=== PATIENT | male | born 1960 | race Caucasian/White ===

== ENCOUNTER 2019-09-16 16:16 | Inpatient (IN) | payer MEDICARE ==
[~2019-09-16] VITALS: Ht 170.2 cm; Wt 75.3 kg
[2019-09-16 17:15] LABS: ALBUMIN 2.8 g/dL (3.4-5.0); ANION GAP 4 mmol/L (5-15); CALCIUM 8.1 mg/dL (8.5-10.1); CHLORIDE 99 mmol/L (98-107)
[2019-09-16 17:17] LABS: BASOPHILS # (AUTO) 0.02 x10^3/uL (0-0.1); BASOPHILS % (AUTO) 0 % (0-1); EOSINOPHILS # (AUTO) 0.06 x10^3/uL (0-0.4); EOSINOPHILS % (AUTO) 1 % (1-7); LYMPHOCYTES % (AUTO) 8 % (22-44); MD NO; MEAN CORPUSCULAR HGB CONC 33.1 g/dL (33.2-36.2); MEAN CORPUSCULAR VOLUME 99.7 fL (81-97); MEAN PLATELET VOLUME 8.3 fL (7.4-10.4); MONOCYTES # (AUTO) 0.26 x10^3/uL (0.2-0.8); MONOCYTES % (AUTO) 6 % (2-9); NEUTROPHILS # (AUTO) 4.07 x10^3/uL (1.8-6.8); NEUTROPHILS % (AUTO) 85 % (42-75); PLATELET COUNT 105 x10^3/uL (130-400); RED BLOOD COUNT 2.52 x10^6/uL (4.38-5.82); RED CELL DISTRIBUTION WIDTH 13.8 % (9.4-14.8)
[2019-09-16 17:20] LABS: ALANINE AMINOTRANSFERASE 21 U/L (12-78); ALKALINE PHOSPHATASE 55 U/L (45-117); BILIRUBIN,TOTAL 0.6 mg/dL (0.2-1.0); CREATININE 6.25 mg/dL (0.7-1.3); TOTAL PROTEIN 5.7 g/dL (6.4-8.2)
--- NOTE | 2019-09-16 18:30 | NUR ---
PT RESTING IN BED, CALL LIGHT IN REACH
--- NOTE | 2019-09-16 18:53 | NUR ---
REPORT TO GARRETT WYATT
--- NOTE | 2019-09-16 18:55 | NUR ---
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
[2019-09-16] MEDS ORDERED: INSULIN REGULAR 100 UNITS/ML, 3ML VIAL IVPush ONE (19:00)
[2019-09-16 19:20] LABS: MICROSCOPIC AUTO
[2019-09-16 19:22] LABS: CULTURE INDICATED? NO
[2019-09-16] MEDS ORDERED: INSU100C5 SQ-INSULIN (19:46)
[2019-09-16] MEDS ORDERED: INSU100V8 SQ (19:46)
--- NOTE | 2019-09-16 19:53 | NUR ---
REPORT CALLED TO JOÃO WYATT AWAITING IR TO COME PLACE HD CATH THEN PATIENT RTG TO [facility]
--- NOTE | 2019-09-16 20:08 | NUR ---
IR AT BEDSIDE TO PLACE CATH VIA ULTRASOUND
--- NOTE | 2019-09-16 20:40 | NUR ---
RIGHT IJ TRIALYSIS CATHETER PLACED BY IR PLACEMENT CONFIRMED BY CXR PERFORMED DIRECTLY AFTER
--- NOTE | 2019-09-16 20:40 | NUR ---
REPEAT FSBS [id number]
--- NOTE | 2019-09-16 20:50 | NUR ---
RIGHT NECK TRIALYSIS REDRESSED (ORIGIANL DRESSING HALF IN HAIR/BLOODY)
--- NOTE | 2019-09-16 21:05 | NUR ---
DR RIVERA (HAND RIGGER) AT BEDSIDE FOR ASSESSMENT))-PLAN TO DIALYZE TONIGHT
[2019-09-16] MEDS ORDERED: DARBEPOETIN 100 MCG/ML SQ SCH (21:30)
[2019-09-16] MEDS: TACROLIMUS 1 MG CAPSULE PO SCH (21:30)
[2019-09-16] MEDS: PRAVASTATIN 20 MG TABLET PO SCH (21:30)
--- NOTE | 2019-09-16 21:31 | NUR ---
JOÃO WYATT MADE AWARE OF NEED TO COMPLETE MED RECC/ POC FOR THE EVENING (EMERGENT HD)
[2019-09-16 21:38] VITALS: BP 174/78
[2019-09-16] MEDS: INSULIN GLARGINE 100 UNITS/ML, PEN SQ-INSULIN SCH (22:00)
[2019-09-16] MEDS ORDERED: ONDANSETRON ODT 4 MG PO PRN (23:00)
[2019-09-16] MEDS ORDERED: DOCUSATE 100 MG CAPSULE PO PRN (23:00)
[2019-09-16] MEDS ORDERED: NICOTINE 21 MG/24 HR PATCH.TD24 TD PRN (23:00)
[2019-09-16] MEDS ORDERED: TEMAZEPAM 15 MG CAPSULE PO PRN (23:00)
[2019-09-16] MEDS ORDERED: ACETAMINOPHEN 325 MG TABLET PO PRN (23:00)
[2019-09-17] VITALS (8 sets, daily range): BP systolic 159–179; BP diastolic 67–85
[2019-09-17] MEDS: HEPARIN 5,000 UNITS/ML, 1ML SQ SCH ×3 (01:38→20:05)
[2019-09-17] MEDS: hydrALAzine 20 MG/ML, 1ML IVPush PRN (01:38)
[2019-09-17 05:29] LABS: BASOPHILS # (AUTO) 0.01 x10^3/uL (0-0.1); BASOPHILS % (AUTO) 0 % (0-1); EOSINOPHILS # (AUTO) 0.09 x10^3/uL (0-0.4); EOSINOPHILS % (AUTO) 2 % (1-7); LYMPHOCYTES # (AUTO) 0.56 x10^3/uL (1-3.4); LYMPHOCYTES % (AUTO) 11 % (22-44); MD NO; MEAN CORPUSCULAR HEMOGLOBIN 32.5 pg (27.5-34.5); MEAN CORPUSCULAR HGB CONC 32.5 g/dL (33.2-36.2); MEAN CORPUSCULAR VOLUME 99.8 fL (81-97); MEAN PLATELET VOLUME 7.8 fL (7.4-10.4); MONOCYTES # (AUTO) 0.25 x10^3/uL (0.2-0.8); MONOCYTES % (AUTO) 5 % (2-9); NEUTROPHILS % (AUTO) 82 % (42-75); PLATELET COUNT 106 x10^3/uL (130-400); RED BLOOD COUNT 2.72 x10^6/uL (4.38-5.82); RED CELL DISTRIBUTION WIDTH 13.8 % (9.4-14.8)
[2019-09-17 05:40] LABS: % IRON SATURATION 18 % (20-55); ALBUMIN 2.7 g/dL (3.4-5.0); ANION GAP 5 mmol/L (5-15); CALCIUM 8.1 mg/dL (8.5-10.1); CHLORIDE 102 mmol/L (98-107); CREATININE 4.06 mg/dL (0.7-1.3); IRON LEVEL 39 mcg/dL (65-175); TOTAL IRON BINDING CAPACITY 215 mcg/dL (250-450)
[2019-09-17] MEDS: CARVEDILOL 25 MG TABLET PO SCH ×2 (05:42→17:55)
[2019-09-17] MEDS ORDERED: MYCO250C PO (05:54)
[2019-09-17] MEDS ORDERED: PRAV20TA PO (05:55)
[2019-09-17] MEDS ORDERED: TACR1GRA PO (05:56)
[2019-09-17] MEDS ORDERED: ASPI-496 PO (05:57)
[2019-09-17] MEDS ORDERED: DILT180C9 PO (06:00)
[2019-09-17] MEDS ORDERED: OMEP20CA14 PO (06:00)
[2019-09-17] MEDS ORDERED: FURO20TA3 PO (06:00)
[2019-09-17] MEDS ORDERED: MAGN400T36 PO ×2 (06:03)
[2019-09-17] MEDS ORDERED: CARV25TA PO (06:04)
[2019-09-17] MEDS: CHOLECALCIFEROL 1,000 UNIT TABLET PO SCH (10:52)
[2019-09-17] MEDS: IRON SUCROSE COMPLEX 100MG/5ML IV SCH (10:52)
[2019-09-17] MEDS: TACROLIMUS 1 MG CAPSULE PO SCH ×2 (10:52→20:04)
[2019-09-17] MEDS ORDERED: ACETAMINOPHEN 325 MG TABLET PO PRN (11:00)
[2019-09-17] MEDS: INSULIN LISPRO 100 UNITS/ML, PEN SQ-INSULIN SCH ×3 (14:17→20:06)
[2019-09-17] MEDS: PRAVASTATIN 20 MG TABLET PO SCH (20:05)
[2019-09-17] MEDS: INSULIN GLARGINE 100 UNITS/ML, PEN SQ-INSULIN SCH (20:07)
[2019-09-18 01:59] VITALS: BP 158/68
[2019-09-18] MEDS: HEPARIN 5,000 UNITS/ML, 1ML SQ SCH ×3 (03:24→22:44)
[2019-09-18] MEDS: CARVEDILOL 25 MG TABLET PO SCH ×2 (06:07→17:39)
[2019-09-18 06:51] VITALS: BP 155/76
[2019-09-18 07:38] LABS: BASOPHILS # (AUTO) 0.01 x10^3/uL (0-0.1); BASOPHILS % (AUTO) 0 % (0-1); EOSINOPHILS % (AUTO) 0 % (1-7); LYMPHOCYTES # (AUTO) 0.48 x10^3/uL (1-3.4); LYMPHOCYTES % (AUTO) 9 % (22-44); MD NO; MEAN CORPUSCULAR HEMOGLOBIN 32.6 pg (27.5-34.5); MEAN CORPUSCULAR HGB CONC 33.3 g/dL (33.2-36.2); MEAN CORPUSCULAR VOLUME 97.9 fL (81-97); MEAN PLATELET VOLUME 7.1 fL (7.4-10.4); MONOCYTES # (AUTO) 0.32 x10^3/uL (0.2-0.8); MONOCYTES % (AUTO) 6 % (2-9); NEUTROPHILS # (AUTO) 4.38 x10^3/uL (1.8-6.8); NEUTROPHILS % (AUTO) 85 % (42-75); PLATELET COUNT 108 x10^3/uL (130-400); RED BLOOD COUNT 2.67 x10^6/uL (4.38-5.82); RED CELL DISTRIBUTION WIDTH 13.8 % (9.4-14.8)
[2019-09-18 07:48] LABS: ALBUMIN 2.5 g/dL (3.4-5.0); ANION GAP 3 mmol/L (5-15); CHLORIDE 104 mmol/L (98-107)
[2019-09-18 07:52] LABS: ALANINE AMINOTRANSFERASE 22 U/L (12-78); ALKALINE PHOSPHATASE 46 U/L (45-117); BILIRUBIN,TOTAL 0.4 mg/dL (0.2-1.0); CALCIUM 8.3 mg/dL (8.5-10.1); CREATININE 3.49 mg/dL (0.7-1.3); TOTAL PROTEIN 5.3 g/dL (6.4-8.2)
[2019-09-18] MEDS: IRON SUCROSE COMPLEX 100MG/5ML IV SCH (09:07)
[2019-09-18] MEDS: INSULIN LISPRO 100 UNITS/ML, PEN SQ-INSULIN SCH ×4 (09:26→21:15)
[2019-09-18 12:45] VITALS: BP 151/87
[2019-09-18] MEDS: CHOLECALCIFEROL 1,000 UNIT TABLET PO SCH (14:31)
[2019-09-18] MEDS: TACROLIMUS 1 MG CAPSULE PO SCH ×2 (14:32→21:15)
[2019-09-18] MEDS ORDERED: LIDOCAINE 1%, 10ML ONE (15:37)
[2019-09-18] MEDS ORDERED: LIDOCAINE 1%, 20ML ONE (15:37)
[2019-09-18 15:40] VITALS: BP 160/70
[2019-09-18] MEDS ORDERED: NALOXONE 1 MG/ML, 2ML ONE (15:44)
[2019-09-18] MEDS ORDERED: FENTANYL PF 100 MCG/2ML ONE ×2 (15:44)
[2019-09-18 17:39] VITALS: BP 172/78
[2019-09-18 18:40] VITALS: BP 156/75
[2019-09-18] MEDS: INSULIN GLARGINE 100 UNITS/ML, PEN SQ-INSULIN SCH (21:15)
[2019-09-18] MEDS: PRAVASTATIN 20 MG TABLET PO SCH (21:15)
[2019-09-19 00:23] VITALS: BP 168/88
[2019-09-19] MEDS: HEPARIN 5,000 UNITS/ML, 1ML SQ SCH ×3 (06:05→23:04)
[2019-09-19] MEDS: CARVEDILOL 25 MG TABLET PO SCH ×2 (06:05→17:54)
[2019-09-19] MEDS: INSULIN LISPRO 100 UNITS/ML, PEN SQ-INSULIN SCH ×4 (07:00→20:17)
[2019-09-19 07:56] VITALS: BP 127/63
[2019-09-19] MEDS: TACROLIMUS 1 MG CAPSULE PO SCH ×2 (08:22→20:16)
[2019-09-19] MEDS: IRON SUCROSE COMPLEX 100MG/5ML IV SCH (08:22)
[2019-09-19] MEDS: CHOLECALCIFEROL 1,000 UNIT TABLET PO SCH (08:22)
[2019-09-19 14:19] VITALS: BP 151/71
[2019-09-19 19:54] VITALS: BP 158/69
[2019-09-19] MEDS: PRAVASTATIN 20 MG TABLET PO SCH (20:16)
[2019-09-19] MEDS: INSULIN GLARGINE 100 UNITS/ML, PEN SQ-INSULIN SCH (20:17)
[2019-09-20] VITALS (8 sets, daily range): BP systolic 160–178; BP diastolic 71–87
[2019-09-20] MEDS: hydrALAzine 20 MG/ML, 1ML IVPush PRN (01:14)
[2019-09-20] MEDS ORDERED: LABETALOL 5MG/ML, 20ML IVPush ONE (03:30)
[2019-09-20 06:03] LABS: BASOPHILS # (AUTO) 0.02 x10^3/uL (0-0.1); BASOPHILS % (AUTO) 0 % (0-1); EOSINOPHILS # (AUTO) 0.13 x10^3/uL (0-0.4); EOSINOPHILS % (AUTO) 2 % (1-7); LYMPHOCYTES # (AUTO) 0.58 x10^3/uL (1-3.4); LYMPHOCYTES % (AUTO) 10 % (22-44); MD NO; MEAN CORPUSCULAR HEMOGLOBIN 32.1 pg (27.5-34.5); MEAN CORPUSCULAR HGB CONC 32.3 g/dL (33.2-36.2); MEAN CORPUSCULAR VOLUME 99.4 fL (81-97); MEAN PLATELET VOLUME 7.4 fL (7.4-10.4); MONOCYTES # (AUTO) 0.42 x10^3/uL (0.2-0.8); MONOCYTES % (AUTO) 7 % (2-9); NEUTROPHILS # (AUTO) 4.76 x10^3/uL (1.8-6.8); NEUTROPHILS % (AUTO) 81 % (42-75); PLATELET COUNT 118 x10^3/uL (130-400); RED CELL DISTRIBUTION WIDTH 13.9 % (9.4-14.8)
[2019-09-20 06:14] LABS: ALBUMIN 2.5 g/dL (3.4-5.0); CALCIUM 7.8 mg/dL (8.5-10.1); CHLORIDE 101 mmol/L (98-107)
[2019-09-20 06:18] LABS: ALANINE AMINOTRANSFERASE 17 U/L (12-78); ALKALINE PHOSPHATASE 44 U/L (45-117); BILIRUBIN,TOTAL 0.4 mg/dL (0.2-1.0); CREATININE 3.81 mg/dL (0.7-1.3); TOTAL PROTEIN 5.2 g/dL (6.4-8.2)
[2019-09-20] MEDS: CARVEDILOL 25 MG TABLET PO SCH ×2 (06:23→18:28)
[2019-09-20] MEDS: HEPARIN 5,000 UNITS/ML, 1ML SQ SCH ×3 (06:24→23:31)
[2019-09-20 06:37] LABS: ANION GAP 6 mmol/L (5-15)
[2019-09-20] MEDS ORDERED: GLUCAGON 1 MG IM PRN (07:00)
[2019-09-20] MEDS ORDERED: DEXTROSE 4 GM TAB.CHEW PO PRN (07:00)
[2019-09-20] MEDS ORDERED: DEXTROSE 50%, 50ML SYRINGE IVPush PRN (07:00)
[2019-09-20] MEDS: INSULIN LISPRO 100 UNITS/ML, PEN SQ-INSULIN SCH ×4 (07:38→20:59)
[2019-09-20] MEDS: TACROLIMUS 1 MG CAPSULE PO SCH ×2 (08:26→20:09)
[2019-09-20] MEDS: IRON SUCROSE COMPLEX 100MG/5ML IV SCH (08:26)
[2019-09-20] MEDS: CHOLECALCIFEROL 1,000 UNIT TABLET PO SCH (08:28)
[2019-09-20] MEDS: SODIUM CHLORIDE FLUSH 10ML SYR IVF SCH ×2 (08:28→20:09)
[2019-09-20] MEDS: LOSARTAN 25MG TABLET PO SCH (13:04)
[2019-09-20] MEDS: ISOSORBIDE DINITRATE 10 MG TABLET PO SCH ×3 (13:04→20:09)
[2019-09-20] MEDS: PRAVASTATIN 20 MG TABLET PO SCH (20:08)
[2019-09-20] MEDS: INSULIN GLARGINE 100 UNITS/ML, PEN SQ-INSULIN SCH (20:59)
[2019-09-21 01:19] VITALS: BP 177/78
[2019-09-21] MEDS: hydrALAzine 20 MG/ML, 1ML IVPush PRN (01:23)
[2019-09-21 01:48] VITALS: BP 156/60
[2019-09-21] MEDS: CARVEDILOL 25 MG TABLET PO SCH (06:12)
[2019-09-21] MEDS: HEPARIN 5,000 UNITS/ML, 1ML SQ SCH ×2 (06:12→14:00)
[2019-09-21] MEDS: INSULIN LISPRO 100 UNITS/ML, PEN SQ-INSULIN SCH ×2 (07:00→11:00)
[2019-09-21 07:30] VITALS: BP 155/74
[2019-09-21] MEDS: CHOLECALCIFEROL 1,000 UNIT TABLET PO SCH (08:43)
[2019-09-21] MEDS: IRON SUCROSE COMPLEX 100MG/5ML IV SCH (08:43)
[2019-09-21 08:44] VITALS: BP 148/77
[2019-09-21] MEDS: TACROLIMUS 1 MG CAPSULE PO SCH (08:45)
[2019-09-21] MEDS: LOSARTAN 25MG TABLET PO SCH (08:45)
[2019-09-21] MEDS: ISOSORBIDE DINITRATE 10 MG TABLET PO SCH (08:46)
[2019-09-21] MEDS: SODIUM CHLORIDE FLUSH 10ML SYR IVF SCH (08:46)
[2019-09-21 13:57] VITALS: BP 168/78
[2019-09-21] MEDS ORDERED: ISOS10TA2 PO (14:40)
[2019-09-21] MEDS ORDERED: LOSA25TA25 PO (14:40)
[2019-09-21] MEDS ORDERED: INSU100V8 SQ (14:40)
[2019-09-21] MEDS ORDERED: HYDR-3342 PO (14:40)
[2019-09-21] MEDS ORDERED: NICO-487 TD (14:40)
[2019-09-21] MEDS ORDERED: PRED5TAB PO (14:40)
[2019-09-21] MEDS ORDERED: CHOL10003 PO (14:40)
[2019-09-21] MEDS ORDERED: FERR-51 PO (14:44)
== END 2019-09-21 15:15 | disposition home or self-care (01) | DRG 698 ==
LOC: ED 17:47 → EDIP 18:53 → 4EST 21:31 → DCLOUNGE 09-21 15:11
PROVIDERS: ADMIT Family Medicine; ATTEND Family Medicine
PROC: 02HV33Z Insertion of Infusion Device into Superior Vena Cava, Percutaneous Approach (ICD-10-PCS; principal; 2019-09-16)
PROC: B548ZZA Ultrasonography of Superior Vena Cava, Guidance (ICD-10-PCS; 2019-09-16)
PROC: 5A1D70Z Performance of Urinary Filtration, Intermittent, Less than 6 Hours Per Day (ICD-10-PCS; 2019-09-16)
PROC: 5A1D70Z Performance of Urinary Filtration, Intermittent, Less than 6 Hours Per Day (ICD-10-PCS; 2019-09-17)
PROC: 0JH63XZ Insertion of Tunneled Vascular Access Device into Chest Subcutaneous Tissue and Fascia, Percutaneous Approach (ICD-10-PCS; 2019-09-18)
PROC: 02HV33Z Insertion of Infusion Device into Superior Vena Cava, Percutaneous Approach (ICD-10-PCS; 2019-09-18)
PROC: B5181ZA Fluoroscopy of Superior Vena Cava using Low Osmolar Contrast, Guidance (ICD-10-PCS; 2019-09-18)
PROC: B548ZZA Ultrasonography of Superior Vena Cava, Guidance (ICD-10-PCS; 2019-09-18)
PROC: 5A1D70Z Performance of Urinary Filtration, Intermittent, Less than 6 Hours Per Day (ICD-10-PCS; 2019-09-18)
PROC: 5A1D70Z Performance of Urinary Filtration, Intermittent, Less than 6 Hours Per Day (ICD-10-PCS; 2019-09-20)
DX: T86.11 Kidney transplant rejection (principal); N18.6 End stage renal disease; E11.10 Type 2 diabetes mellitus with ketoacidosis without coma; I12.0 Hypertensive chronic kidney disease with stage 5 chronic kidney disease or end stage renal disease; N25.81 Secondary hyperparathyroidism of renal origin; N17.9 Acute kidney failure, unspecified; Q61.2 Polycystic kidney, adult type; J81.1 Chronic pulmonary edema; D50.9 Iron deficiency anemia, unspecified; D53.9 Nutritional anemia, unspecified; D63.1 Anemia in chronic kidney disease; D69.6 Thrombocytopenia, unspecified; E11.22 Type 2 diabetes mellitus with diabetic chronic kidney disease; E55.9 Vitamin D deficiency, unspecified; E78.5 Hyperlipidemia, unspecified; E87.5 Hyperkalemia; E87.70 Fluid overload, unspecified; F17.210 Nicotine dependence, cigarettes, uncomplicated; G47.00 Insomnia, unspecified; Y83.0 Surgical operation with transplant of whole organ as the cause of abnormal reaction of the patient, or of later complication, without mention of misadventure at the time of the procedure; Z82.71 Family history of polycystic kidney; Z82.49 Family history of ischemic heart disease and other diseases of the circulatory system; Z79.4 Long term (current) use of insulin; Y92.89 Other specified places as the place of occurrence of the external cause
CPT/HCPCS: 36415; 36558; 77001; 80053; 82962; 83036; 84100; 85025; 90935; 96374; G0378; J1644; J1756; J1815; J3010; J7507; C1750; J0360; J1642; J2310; J7512; J7517